=== PATIENT | male | born 1975 | race Caucasian/White ===

== ENCOUNTER 2021-12-31 16:42 | Emergency (ER) | payer BC, SELFPAY ==
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
[2021-12-31] MEDS: HYDROcodone-acetaminophen 7.5-325 mg Tablet 1 TAB PO (17:47)
== END 2021-12-31 18:45 | disposition home or self-care (01) ==
PROVIDERS: Emergency Provider Nurse Practitioner Family
DX: Z04.1 Encounter for examination and observation following transport accident (principal); M25.512 Pain in left shoulder; V89.2XXA Person injured in unspecified motor-vehicle accident, traffic, initial encounter
CPT/HCPCS: 71045; 73000; 73030; 99283